=== PATIENT | female | born 1955 | race Caucasian/White ===

== ENCOUNTER 2023-01-07 13:39 | Outpatient (RCR) | payer MEDICARE | END 2023-01-22 | LOC: PT 13:39 | PROVIDERS: ATTEND Orthopaedic Surgery | DX: S82.041D Displaced comminuted fracture of right patella, subsequent encounter for closed fracture with routine healing (principal); M25.562 Pain in left knee; M62.81 Muscle weakness (generalized) ==

== ENCOUNTER 2025-03-13 10:43 | Outpatient (RCR) | payer MEDICARE | END 2025-03-25 | LOC: PT 10:43 | PROVIDERS: ATTEND Orthopaedic Surgery | DX: M17.11 Unilateral primary osteoarthritis, right knee (principal); M25.561 Pain in right knee ==

== ENCOUNTER 2025-04-20 14:00 | Outpatient (RCR) | payer MEDICARE | END 2025-04-24 | LOC: PT 14:00 | PROVIDERS: ATTEND Orthopaedic Surgery | DX: M17.11 Unilateral primary osteoarthritis, right knee (principal) ==